=== PATIENT | male | born 1950 | race Caucasian/White ===

== ENCOUNTER 2018-04-25 07:18 | Emergency (ER) | payer MEDICARE, MEDICAID ==
[2018-04-25] MEDS ORDERED: Tamsulosin CAP* 0.4 MG PO ONE (07:29)
[2018-04-25 07:37] VITALS: BP 207/111
[2018-04-25] MEDS ORDERED: Sulfamethox/Trimethoprim DS 800/160* TAB PO ONE (07:58)
--- NOTE | 2018-04-25 07:58 | UC ---
Complaint Male HPI - HPI Summary HPI Summary: C/O acute urinary obstruction. Unable to urinate since 10 PM last night. Had a similar, less severe episode last week. - History of Current Complaint Chief Complaint: UCGU Stated Complaint: CANNOT VOID Time Seen by Provider: 04/25/18 07:29 Hx Obtained From: Patient Onset/Duration: Sudden Onset, Lasting Days - 1 Timing: Constant Severity Initially: Moderate Severity Currently: Moderate Pain Intensity: 7 Location: Suprapubic Character: Constant Pressure Aggravating Factor(s): Nothing Alleviating Factor(s): Nothing Associated Signs And Symptoms: Negative: Diaphoresis, Back Pain, Fever, Hematuria, Dysuria, Rectal Pain - Allergies/Home Medications Allergies/Adverse Reactions: Allergies Allergy/AdvReac Type Severity Reaction Status Date / Time No Known Allergies Allergy Verified 04/25/18 07:36 PMH/Surg Hx/FS Hx/Imm Hx Previously Healthy: Yes - Surgical History Surgical History: Yes Surgery Procedure, Year, and Place: IMPLANTS AND BONE GRAFTS FOR IMPLANTS. DENTAL - Family History Known Family History: Positive: Diabetes - Social History Occupation: Retired Lives: With Family Alcohol Use: None Substance Use Type: Marijuana Substance Use Comment - Amount & Last Used: occasional Smoking Status (MU): Former Smoker Type: Cigarettes Amount Used/How Often: 1/2 PPD Length of Time of Smoking/Using Tobacco: 40+ YEARS OFF AND ON When Did the Patient Quit Smoking/Using Tobacco: 2012 Review of Systems Genitourinary: Urgency, Other - Unable to void Is Patient Immunocompromised?: No All Other Systems Reviewed And Are Negative: Yes Physical Exam Triage Information Reviewed: Yes Appearance: Well-Appearing, Well-Nourished, Pain Distress - mild Vital Signs: Initial Vital Signs Temp 99.0 F 04/25/18 07:31 Pulse 96 04/25/18 07:31 Resp 18 04/25/18 07:31 BP 207/111 04/25/18 07:31 Pulse Ox 96 04/25/18 07:31 Vital Signs Reviewed: Yes Eyes: Positive: Conjunctiva Clear Neck exam: Normal Respiratory Exam: Normal Cardiovascular Exam: Normal Abdomen Description: Positive: No Organomegaly. Negative: Nontender - mild suprapubic tenderness, Distended Bowel Sounds: Positive: Present Musculoskeletal Exam: Normal Neurological Exam: Normal Psychological Exam: Normal Skin Exam: Normal Complaint Male Course/Dx - Course Course Of Treatment: Cortés catheter placed and clamped after 900 ml. - Differential Dx/Diagnosis Differential Diagnosis/HQI/PQRI: Prostatitis, Pyelonephritis, Urinary Tract Infection Provider Diagnoses: Acute prostatitis. Acute bladder outlet obstruction Discharge - Sign-Out/Discharge Documenting (check all that apply): Patient Departure - Discharge Plan Condition: Stable Disposition: HOME Prescriptions: Sulfamethox/Trimethoprim DS* [Bactrim DS 800/160 TAB*] 1 tab PO BID #30 tab Tamsulosin CAP* [Flomax CAP*] 0.4 mg PO BEDTIME #30 cap Patient Education Materials: Prostatitis (ED), Benign Prostatic Hypertrophy (ED ), Cortés Catheter Placement and Care (ED), Sulfamethoxazole/Trimethoprim (By mouth), Tamsulosin (By mouth) Referrals: No Primary Care Phys,NOPCP [Primary Care Provider] - Jas Light MD [Medical Doctor] - 1 Day (See them tomorrow if possible. If not follow up here.) Additional Instructions: If you get bleeding into the cortés bag you will need to go to the ER. Come back in tomorrow to see about removing the cortés. Take first tamsulosin immediately and then take it at night. - Billing Disposition and Condition Condition: STABLE Disposition: Home
== END 2018-04-25 09:39 | disposition home or self-care (01) ==
LOC: EDUNIT# → UCCORT 07:18
DX: N41.0 Acute prostatitis (principal); N32.0 Bladder-neck obstruction; Z87.891 Personal history of nicotine dependence
CPT/HCPCS: 51702; 81003; 99212; A9270-GY; G0463

== ENCOUNTER 2018-04-26 12:31 | Emergency (ER) | payer MEDICARE, MEDICAID ==
[2018-04-26 13:21] VITALS: BP 170/74
--- NOTE | 2018-04-26 13:50 | UC ---
Complaint Male HPI - HPI Summary HPI Summary: 67 y/o male presents to the urgent care for a follow up on his Cortés catheter that was placed here at the urgent care yesterday by Dr Welch. Pt request the Cortés Catheter to be removed since already 2.2L of urine has been removed and he feels uncomfortably working w/ the big bag on his leg. Pt State he has been calling Urologist office Dr Holly w/o any success this morning. Pt also states mild irritation on urethra after showering this morning. Pt denies HX of BPH, STd's, He also denies fever, lower back pain, SoB, ches pain, abdominal pain, N/ V/D. Pt has been taking Rx medication since yesterday. - History of Current Complaint Chief Complaint: UCGU Stated Complaint: FOLLOWUP PERSONAL Time Seen by Provider: 04/26/18 13:22 Hx Obtained From: Patient Onset/Duration: Gradual Onset, Lasting Days - 3 days, Resolved - w/ the cortés catheter Timing: Constant Severity Initially: Mild Severity Currently: Mild Pain Intensity: 0 Pain Scale Used: 0-10 Numeric Location: Penis Character: Burning Aggravating Factor(s): Voiding Alleviating Factor(s): Nothing Associated Signs And Symptoms: Positive: Negative. Negative: Diaphoresis, Back Pain, Fever, Hematuria, Dysuria, Blood in Stool, Rectal Pain, Appetite, Nausea - Risk Factors Testicular Torsion: Negative - Allergies/Home Medications Allergies/Adverse Reactions: Allergies Allergy/AdvReac Type Severity Reaction Status Date / Time No Known Allergies Allergy Verified 04/26/18 13:16 PMH/Surg Hx/FS Hx/Imm Hx Previously Healthy: Yes Cardiovascular History: Hypertension - Surgical History Surgical History: Yes Surgery Procedure, Year, and Place: IMPLANTS AND BONE GRAFTS FOR IMPLANTS. DENTAL - Family History Known Family History: Positive: Hypertension, Diabetes Family History: Colon Cancer, Stroke - Social History Occupation: Employed Full-time Lives: With Family Alcohol Use: None Substance Use Type: Marijuana Substance Use Comment - Amount & Last Used: occasional Smoking Status (MU): Former Smoker Type: Cigarettes Amount Used/How Often: 1/2 PPD Length of Time of Smoking/Using Tobacco: 40+ YEARS OFF AND ON When Did the Patient Quit Smoking/Using Tobacco: 2012 Review of Systems Constitutional: Negative Skin: Rash - At urthra due to Cortés Catheter Eyes: Negative ENT: Negative Respiratory: Negative Cardiovascular: Negative Gastrointestinal: Negative Genitourinary: Negative Motor: Negative Neurovascular: Negative Musculoskeletal: Negative Neurological: Negative Psychological: Negative Is Patient Immunocompromised?: No All Other Systems Reviewed And Are Negative: Yes Physical Exam - Summary Physical Exam Summary: VITAL SIGNS: Reviewed. GENERAL: Patient is a well developed and nourished obese male who is sitting comfortable in the examining table. Patient is not in any acute respiratory distress. HEAD AND FACE: No signs of trauma. No ecchymosis, hematomas or skull depressions. No sinus tenderness. EYES: PERRLA, EOMI x 2, No injected conjunctiva, clear watery eyes, no nystagmus. No photophobia. EARS: Hearing grossly intact. Ear canals and tympanic membranes are within normal limits. MOUTH: pharynx with no erythema, no exudates,no palatal petechiae. no B/L tonsillar enlargement Uvula in midline. NECK: Supple, trachea is midline, no lymphadenopathy, no JVD, no carotid bruit, no c-spine tenderness, neck with full ROM. CHEST: Symmetric, no tenderness at palpation LUNGS: Clear to auscultation bilaterally. No wheezing or crackles. CVS: Regular rate and rhythm, S1 and S2 present, no murmurs or gallops appreciated. ABDOMEN: Soft, non-tender. No signs of distention. No rebound no guarding, and no masses palpated. Bowel sounds are normal. : Normal external genitalia circumcised male; no lesions or rash. Urinary meatus w/ Cortés catheter in place. Non tenderness to palpation. No swelling observed. BACK:no scoliosis or lesions, non tender to palpation, No B/L CVA tenderness EXTREMITIES: FROM in all major joints, no edema, no cyanosis or clubbing. NEURO: Alert and oriented x 3. No acute neurological deficits. Speech is normal and follows commands. SKIN: Dry and warm Triage Information Reviewed: Yes Vital Signs: Initial Vital Signs Temp 98.7 F 04/26/18 13:17 Pulse 75 04/26/18 13:17 Resp 18 04/26/18 13:17 BP 170/74 04/26/18 13:17 Pulse Ox 98 04/26/18 13:17 Complaint Male Course/Dx - Course Course Of Treatment: 67 y/o male presents to the urgent care for a follow up on his Cortés catheter that was placed here at the urgent care yesterday by Dr Welch. Pt request the Cortés Catheter to be removed since already 2.2L of urine has been removed and he feels uncomfortably working w/ the big bag on his leg. Pt State he has been calling Urologist office Dr Holly w/o any success this morning. Pt also states mild irritation on urethra after showering this morning. Pt denies HX of BPH, STd's, He also denies fever, lower back pain, SoB , ches pain, abdominal pain, N/V/D. Pt has been taking Rx medication since yesterday. Hx obtained. PE: WNL. Cortés Catheter in place w/ about 100cc of urine in bag. Pt councel in the importance of keepin Cortés Catheter until he sees Urologist Dr Light since he can develop severe urinary retention and end up going to the ER later on. He was educated in the importance on further work up to find out what is the cause of urinary retention like prostatitis or BPH. Pt understood and agreed. Pt's urinary bag was changed for a leg bag by the nurse for comfort. He was also given the bigger bag to use overnight. Pt's BP is elevated today advised to decrease salt in diet, monitor BP and f/u with PCP for further management. Pt is not taking is not being compliant w/ his BP medications. Pt educated on the improtance to f/u w/ a PCP. Pt given PCP referral from our network. Pt felt better, understood and agreed w/ plan of care. Pt left the clinic ambulating, hemodynamically stable, A&OX3 - Differential Dx/Diagnosis Differential Diagnosis/HQI/PQRI: Prostatitis, Ureteral Calculi, Urinary Tract Infection, Other - urinary retention Provider Diagnoses: 1- Urinary retation follow up. 2-Acute prostatis. 3- Uncontrolled HTN Discharge - Sign-Out/Discharge Documenting (check all that apply): Patient Departure - D/C home - Discharge Plan Condition: Stable Disposition: HOME Patient Education Materials: Urinary Retention in Men (ED), Low-Sodium Diet (ED ) Referrals: [facility] [place] [facility] [Outside] - 2 Days No Primary Care Phys,NOPCP [Primary Care Provider] - Jas Light MD [Medical Doctor] - As Soon As Possible Additional Instructions: 1- Please keep the Cortés catheter in place until you see Urologist Dr Holly for further management in you Urinary retention. 2-Please continue taking Bactrim PO and Flomax PO as directed to alleviate symptoms 3- Your BP is elevated today. please decrease salt in your diet, monitor BP and if it continues to be elevated please f/u with your PCP for further management. 4- If you see blood in the urine or develop fever please go immediately to the Er for further management. Per institutional requirements, I have reviewed the chart, however, I was not consulted specifically or made aware of this patient by the above midlevel provider. I did not personally evaluate, interact with , or disposition this patie - Billing Disposition and Condition Condition: STABLE Disposition: Home
== END 2018-04-26 14:12 | disposition home or self-care (01) ==
LOC: UCCORT 12:31
DX: Z46.6 Encounter for fitting and adjustment of urinary device (principal); R33.9 Retention of urine, unspecified; N41.0 Acute prostatitis; I10 Essential (primary) hypertension
CPT/HCPCS: 99211; G0463

== ENCOUNTER 2018-12-07 07:19 | Emergency (ER) | payer MEDICAID, MEDICARE ==
[2018-12-07 07:34] VITALS: BP 173/92
--- NOTE | 2018-12-07 07:54 | UC ---
General HPI - HPI Summary HPI Summary: Here for urinary retention - states he was fine last night. Last urinated at 11 pm and has not been able to urinate since then. Is in extreme discomfort. States the urine is trickling out. Had nuts and soda last night and states thats what did it. Denied having dysuria or hematuria last night. Had similar issue in March where he required a cortés catheter inserted in urgent care. Was instructed to follow up with urology but could not make the apt. 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 No fevers. No N/V. No new medications. States he takes a lot of supplements. New supplement is bark extract. Meds; Reviewed - History of Current Complaint Chief Complaint: UCGU Stated Complaint: URINARY Time Seen by Provider: 12/07/18 07:41 Pain Intensity: 7 - Allergy/Home Medications Allergies/Adverse Reactions: Allergies Allergy/AdvReac Type Severity Reaction Status Date / Time No Known Allergies Allergy Verified 12/07/18 07:31 Home Medications: Home Medications Amlodipine Besylate/Valsartan [Amlodipine Besylate/Valsa 10-160 mg-] 1 tab PO DAILY 12/07/18 [History Confirmed 12/07/18] Hydrochlorothiazide TAB* [Hydrodiuril TAB*] 25 mg PO DAILY 12/07/18 [History Confirmed 12/07/18] PMH/Surg Hx/FS Hx/Imm Hx Previously Healthy: Yes Cardiovascular History: Hypertension - Surgical History Surgical History: Yes Surgery Procedure, Year, and Place: IMPLANTS AND BONE GRAFTS FOR IMPLANTS. DENTAL - Family History Known Family History: Positive: Hypertension, Diabetes Family History: Colon Cancer, Stroke - Social History Alcohol Use: None Substance Use Type: Marijuana Substance Use Comment - Amount & Last Used: Occasional Smoking Status (MU): Former Smoker Type: Cigarettes Amount Used/How Often: 1/2 PPD Length of Time of Smoking/Using Tobacco: 40+ YEARS OFF AND ON When Did the Patient Quit Smoking/Using Tobacco: 2012 Review of Systems All Other Systems Reviewed And Are Negative: Yes Genitourinary: Positive: Urgency, Other - urinary retention Physical Exam Triage Information Reviewed: Yes Appearance: Pain Distress Vital Signs: Initial Vital Signs Temp 97.1 F 12/07/18 07:29 Pulse 104 12/07/18 07:29 Resp 22 12/07/18 07:29 BP 173/92 12/07/18 07:29 Pulse Ox 97 12/07/18 07:29 Vital Signs Reviewed: Yes Eyes: Positive: Conjunctiva Clear Abdominal Exam: Normal Male Genital Exam: Positive: Normal Genitalia Course/Dx - Course Course Of Treatment: This is a 68 yr old with urinary retention. Cortés catheter placed in urgent care without issues >1400L output. U/A: +RBCs. No signs of pyuria. Plan. Start Flomax Daily as prescribed. Follow up with urology Dr. Dudley on 12/14 at 12:30 = Per RN Dr. Dudley will not remove cortés until he has been on Flomax for one week at minimum. [address] If you have any questions - can call Dr. Dudley's nurse: Kassandra. Recommend avoid caffeine. Recommend follow up elevated blood pressure with your PCP. Continue cortés care as instructed - Diagnoses Provider Diagnosis: Urinary retention Discharge - Sign-Out/Discharge Documenting (check all that apply): Patient Departure All imaging exams completed and their final reports reviewed: No Studies - Discharge Plan Condition: Good Disposition: HOME Prescriptions: Tamsulosin CAP* [Flomax CAP*] 0.4 mg PO BEDTIME #30 cap Patient Education Materials: Urinary Retention in Men (ED) Referrals: Lady Andujar MD [Primary Care Provider] - Patrick Dudley MD [Medical Doctor] - (12/14 at 12:30 ) Additional Instructions: Start Flomax Daily as prescribed Follow up with urology Dr. Dudley on 12/14 at 12:30 = Per RN Dr. Dudley will not remove cortés until he has been on Flomax for one week at minimum [address] If you have any questions - can call Dr. Dudley's nurse: Kassandra Recommend avoid caffeine Recommend follow up elevated blood pressure with your PCP Continue cortés care as instructed - Billing Disposition and Condition Condition: GOOD Disposition: Home
== END 2018-12-07 08:48 | disposition home or self-care (01) ==
LOC: UCCORT 07:19
DX: R33.9 Retention of urine, unspecified (principal); I10 Essential (primary) hypertension; Z87.891 Personal history of nicotine dependence
CPT/HCPCS: 51702; 81003; 99212; G0463

== ENCOUNTER 2019-04-07 15:33 | Emergency (ER) | payer MEDICARE ==
[2019-04-07 15:55] VITALS: BP 139/63
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
== END 2019-04-07 17:50 | disposition home or self-care (01) ==
LOC: UCCORT 15:33
DX: S90.122A Contusion of left lesser toe(s) without damage to nail, initial encounter (principal); V09.20XA Pedestrian injured in traffic accident involving unspecified motor vehicles, initial encounter; Y93.9 Activity, unspecified; Y92.9 Unspecified place or not applicable; I10 Essential (primary) hypertension; Z87.891 Personal history of nicotine dependence
CPT/HCPCS: 99212; G0463